=== PATIENT | male | born 1965 | race Hispanic/Latino ===

== ENCOUNTER 2019-01-31 08:01 | Emergency (ER) | payer SELFPAY ==
--- NOTE | 2019-01-31 09:13 | ER ---
Nurse's Notes [facility] Name: Yemi Vega Age: 53 yrs Sex: Male : 1965 Arrival Date: 01/31/2019 Time: 08:02 Bed 18 Private MD: Diagnosis: Pain in right shoulder Presentation: 01/31 08:04 Presenting complaint: Patient states: right shoulder pain that he noticed started after sv lifting some branches that happened months ago. Has been taking Excedrin and it helps sometimes. Transition of care: patient was not received from another setting of care. Onset of symptoms was 2018. Risk Assessment: Do you want to hurt yourself or someone else? Patient reports no desire to harm self or others. Initial Sepsis Screen: Does the patient meet any 2 criteria? No. Patient's initial sepsis screen is negative. Does the patient have a suspected source of infection? No. Patient's initial sepsis screen is negative. Care prior to arrival: Medication(s) given: Excedrin ES. 08:04 Method Of Arrival: Ambulatory sv 08:04 Acuity: JENNIFER 4 sv Triage Assessment: 08:04 General: Appears in no apparent distress. uncomfortable, well groomed, well developed, sv Behavior is calm, cooperative, appropriate for age. Pain: Complains of pain in anterior aspect of right shoulder Pain currently is 10 out of 10 on a pain scale. Pain began months ago Is intermittent. Neuro: Level of Consciousness is awake, alert, obeys commands, Oriented to person, place, time, situation, Moves all extremities. Gait is steady. Respiratory: Airway is patent Respiratory effort is even, unlabored, Respiratory pattern is regular, symmetrical. Derm: Skin is pink, warm \T\ dry. Musculoskeletal: Range of motion: intact in all extremities. Historical: - Allergies: 08:09 No Known Allergies; sv - PMHx: 08:09 Diabetes - NIDDM; Hypertension; sv - PSHx: 08:09 left knee; sv - Immunization history:: Flu vaccine is not up to date. - Social history:: Smoking status: Patient/guardian denies using tobacco. - Ebola Screening: : No symptoms or risks identified at this time. Screenin:04 Abuse screen: Denies threats or abuse. Denies injuries from another. Nutritional sv screening: No deficits noted. Tuberculosis screening: No symptoms or risk factors identified. Fall Risk None identified. Assessment: 08:44 Reassessment: Xray at the bedside. sv 09:15 Reassessment: Patient appears in no apparent distress at this time. No changes from sv previously documented assessment. Patient and/or family updated on plan of care and expected duration. Pain level reassessed. Patient is alert, oriented x 3, equal unlabored respirations, skin warm/dry/pink. 09:41 Reassessment: Patient appears in no apparent distress at this time. No changes from sv previously documented assessment. Patient and/or family updated on plan of care and expected duration. Pain level reassessed. Patient is alert, oriented x 3, equal unlabored respirations, skin warm/dry/pink. Vital Signs: 08:09 BP 155 / 94; Pulse 82; Resp 18; Temp 98; Pulse Ox 96% ; Weight 108.86 kg; Height 5 ft. sv 10 in. (177.80 cm); Pain 10/10; 09:01 BP 149 / 91; Pulse 71; Resp 18; Pulse Ox 96% ; sv 08:09 Body Mass Index 34.44 (108.86 kg, 177.80 cm) sv ED Course: 08:02 Patient arrived in ED. as 08:03 Iraida Box, MILTON is Primary Nurse. sv 08:04 Roberto Carlos Napier NP is PHCP. pm1 08:04 Cuate Christiansen MD is Attending Physician. pm1 08:04 Arm band placed on Patient placed in an exam room, on a stretcher. sv 08:04 Patient has correct armband on for positive identification. Bed in low position. Call sv light in reach. Pulse ox on. NIBP on. Door closed. Head of bed elevated. 08:09 Triage completed. sv 08:23 Awaiting for x-ray. sv 08:53 Shoulder Right (2 View) XRAY In Process Unspecified. EDMS 09:22 No provider procedures requiring assistance completed. Patient did not have IV access sv during this emergency room visit. Administered Medications: 09:19 Drug: TORadol 60 mg Route: IM; Site: right gluteus; sv 09:41 Follow up: Response: No adverse reaction; No change in condition sv Outcome: 09:12 Discharge ordered by . pm1 09:41 Patient left the ED. ss 09:41 Discharged to home ambulatory. sv 09:41 Condition: stable 09:41 Discharge instructions given to patient, Instructed on discharge instructions, follow up and referral plans. no drinking with medication, no driving heavy equipment, medication usage, Demonstrated understanding of instructions, follow-up care, medications, Prescriptions given X 3. Signatures: Dispatcher [employer] Iraida Burks RN RN sv Martinez, Amelia as Smirch, Shelby, RN RN ss Marinas, Patrick, [employer] PROFESSOR OF ANTHROPOLOGY pm1
--- NOTE | 2019-01-31 09:13 | EDPHYS ---
Physician Documentation [facility] Name: Yemi Vega Age: 53 yrs Sex: Male : 1965 Arrival Date: 01/31/2019 Time: 08:02 Bed 18 Private MD: ED Physician Cuate Christiansen HPI: 01/31 08:56 This 53 yrs old Male presents to ER via Ambulatory with complaints of Right pm1 Shoulder Pain. 08:56 The patient or guardian complains of pain. right shoulder. Context: resulted from pm1 lifting or carrying, a heavy object. Onset: The symptoms/episode began/occurred Multiple months ago. Pain is worse today. Modifying factors: the symptoms are alleviated by remaining still, The symptoms are aggravated by movement of right arm. Associated signs and symptoms: Pertinent negatives: chest pain, neck pain, Numbness in right arm tingling, Weakness in right arm. Severity of symptoms: in the emergency department the symptoms are actually worse. Treatment prior to arrival includes: over the counter medications, NSAIDS. The patient has not experienced similar symptoms in the past. The patient has not recently seen a physician. Historical: - Allergies: 08:09 No Known Allergies; sv - PMHx: 08:09 Diabetes - NIDDM; Hypertension; sv - PSHx: 08:09 left knee; sv - Immunization history:: Flu vaccine is not up to date. - Social history:: Smoking status: Patient/guardian denies using tobacco. - Ebola Screening: : No symptoms or risks identified at this time. ROS: 08:56 Constitutional: Negative for fever, chills, and weight loss, Eyes: Negative for injury, pm1 pain, redness, and discharge, ENT: Negative for injury, pain, and discharge, Neck: Negative for injury, pain, and swelling, Cardiovascular: Negative for chest pain, palpitations, and edema, Respiratory: Negative for shortness of breath, cough, wheezing, and pleuritic chest pain, Abdomen/GI: Negative for abdominal pain, nausea, vomiting, diarrhea, and constipation, Back: Negative for injury and pain. 08:56 Skin: Negative for injury, rash, and discoloration, Neuro: Negative for headache, weakness, numbness, tingling, and seizure. 08:56 MS/extremity: Positive for pain, of the right shoulder, Negative for decreased range of motion, deformity. Exam: 08:56 Constitutional: This is a well developed, well nourished patient who is awake, alert, pm1 and in no acute distress. Head/Face: Normocephalic, atraumatic. Neck: Trachea midline, no thyromegaly or masses palpated, and no cervical lymphadenopathy. Supple, full range of motion without nuchal rigidity, or vertebral point tenderness. No Meningismus. Chest/axilla: Normal chest wall appearance and motion. Nontender with no deformity. No lesions are appreciated. Cardiovascular: Regular rate and rhythm with a normal S1 and S2. No gallops, murmurs, or rubs. Normal PMI, no JVD. No pulse deficits. Respiratory: Lungs have equal breath sounds bilaterally, clear to auscultation and percussion. No rales, rhonchi or wheezes noted. No increased work of breathing, no retractions or nasal flaring. 08:56 Back: No spinal tenderness. No costovertebral tenderness. Full range of motion. Skin: Warm, dry with normal turgor. Normal color with no rashes, no lesions, and no evidence of cellulitis. 08:56 Musculoskeletal/extremity: Extremities: grossly normal except: noted in the right shoulder: pain, There is no evidence of decreased ROM, deformity. 08:56 Neuro: Orientation: is normal, Motor: is normal, moves all fours, Gait: is steady, at a normal pace, without difficulty. Vital Signs: 08:09 BP 155 / 94; Pulse 82; Resp 18; Temp 98; Pulse Ox 96% ; Weight 108.86 kg; Height 5 ft. sv 10 in. (177.80 cm); Pain 10/10; 09:01 BP 149 / 91; Pulse 71; Resp 18; Pulse Ox 96% ; sv 08:09 Body Mass Index 34.44 (108.86 kg, 177.80 cm) sv MDM: 08:15 Patient medically screened. pm1 08:15 Data reviewed: vital signs. Data interpreted: Pulse oximetry: on room air is 96 %. pm1 Interpretation: normal. 09:11 ED course: patient refused sling. pm1 09:11 Counseling: I had a detailed discussion with the patient and/or guardian regarding: the pm1 historical points, exam findings, and any diagnostic results supporting the discharge/admit diagnosis, radiology results, the need for outpatient follow up, for definitive care, a orthopedic surgeon, to return to the emergency department if symptoms worsen or persist or if there are any questions or concerns that arise at home. 01/31 08:19 Order name: Shoulder Right (2 View) XRAY pm1 Administered Medications: :19 Drug: TORadol 60 mg Route: IM; Site: right gluteus; sv 09:41 Follow up: Response: No adverse reaction; No change in condition sv Disposition: 14:10 Co-signature as Attending Physician, Cuate Christiansen MD. rn Disposition: 01/31/19 09:12 Discharged to Home. Impression: Pain in right shoulder. - Condition is Stable. - Discharge Instructions: Shoulder Pain. - Prescriptions for Tylenol- Codeine #3 300-30 mg Oral Tablet - take 2 tablets by ORAL route every 6 hours As needed; 20 tablet. Cyclobenzaprine 10 mg Oral Tablet - take 1 tablet by ORAL route every 8 hours As needed; 30 tablet. Diclofenac Sodium 75 mg Oral Tablet, Delayed Release (E.C.) - take 1 tablet by ORAL route 2 times per day As needed; 30 tablet. - Work release form, Medication Reconciliation Form, Thank You Letter, Antibiotic Education, Prescription Opioid Use form. - Follow up: Emergency Department; When: As needed; Reason: Worsening of condition. Follow up: Private Physician; When: 2 - 3 days; Reason: Recheck today's complaints, Continuance of care, Re-evaluation by your physician. - Problem is new. - Symptoms have improved. Signatures: Dispatcher [employer] Iraida Burks RN RN sv Nieto, Roman, MD MD rn Smirch, Shelby, RN RN ss Marinas, Patrick, [employer] pm1 Corrections: (The following items were deleted from the chart) 09:41 09:12 01/31/2019 09:12 Discharged to Home. Impression: Pain in right shoulder. ss Condition is Stable. Forms are Medication Reconciliation Form, Thank You Letter, Antibiotic Education, Prescription Opioid Use. Follow up: Emergency Department; When: As needed; Reason: Worsening of condition. Follow up: Private Physician; When: 2 - 3 days; Reason: Recheck today's complaints, Continuance of care, Re-evaluation by your physician. Problem is new. Symptoms have improved. pm1
[2019-01-31] MEDS ORDERED: KETOROLAC 30 MG/ML INJ ONE (09:17)
[2019-01-31 09:56] VITALS: TEMP 98; O2SAT 96
[2019-01-31 09:58] VITALS: BP 149/91
--- NOTE | 2019-01-31 10:09 | RAD REPORT ---
EXAM DESCRIPTION: RAD - Shoulder Right 2 View - 01/31/2019 8:51 am CLINICAL HISTORY: Right shoulder pain FINDINGS: No fracture or dislocation is seen. Moderate narrowing involves the AC joint with small osteophytes
== END 2019-01-31 09:41 | disposition home or self-care (01) ==
LOC: ER 08:01
DX: M25.511 Pain in right shoulder (principal)
CPT/HCPCS: 96372; 99284

== ENCOUNTER 2023-01-24 09:19 | Emergency (ER) | payer SELFPAY ==
--- OUTSIDE RECORDS SUMMARY | 2023-01-24 09:24 | XMS REPORT | Continuity of Care Document ---
:1965 Author Organization [facility] t Address [address] [facility] [address] [place] [address] Care Team Providers Name Role Phone JENNIFER RUELAS Primary Care Physician Unavailable MOLLY WU Attending Clinician Unavailable Karishma Wills Attending Clinician Casi Capone DO Attending Clinician Fuentes Brock Attending Clinician Payers Payer Name Policy Type Policy Number Effective Date Expiration Date S [facility] [id number] 2018 00:00:00 Problems Condition Condition Condition Status Onset Resolution Last Treating Co mments Source Name Details Category Date Date Treatment Clinician Date No known No known Disease Unive rs active active ity of problems problems [facility] Diabetes Diabetes Problem Resolve 2020-06-14 Memoria mellitus mellitus d 00:44:58 l (disorder) (disorder) He rmann Resolved Problem 06/14/2020 Medical Group Hypertensi Hypertens Problem Resolve 2020-06-14 Memoria ve leila d 00:44:58 l disorder, disorder, Herm aly systemic systemic arterial arterial (disorder) (disorder) Resolved Problem 06/14/2020 Medical Group Allergies, Adverse Reactions, Alerts Allergy Allergy Status Severity Reaction(s) Onset Inactive Treating Comm ents Source Name Type Date Date Clinician No Known No Known Active Memori a Medicati Medicati l on on Glenn Allergie Allergie s s NO KNOWN Drug Active Univers ALLERGIE Class ity of S [facility] Social History Social Habit Start Date Stop Date Quantity Comments Source Sex Assigned At [facility] Medical Branch Exposure to Not sure [facility] SARS-CoV-2 (event) Medica l Branch Alcohol intake 2018-05-19 2018-05-19 [facility] 00:00:00 00:00:00 Medical Branch Smoking Status Start Date Stop Date Source Social History [facility] Medications Ordered Filled Start Stop Current Ordering Indication Dosage Frequency Signature Comments Components Source Medication Medication Date Date Medication? Clinician (SIG) Name Name glimepiride Yes 0 Memori a 2 mg oral 4-19 Refill(s) l tablet 19:16: [place] 00 Hydrochloro Yes 0 Memori a thiazide 25 4-19 Refill(s) l MG / 19:15: [place] valsartan 00 320 MG Oral Tablet pravastatin Yes 0 Memori a 40 mg oral 4-19 Refill(s) l tablet 19:15: [place] 00 Metformin Yes 0 Memoria hydrochlori 4-19 Refill(s) l de 500 MG 19:15: [place] Oral Tablet 00 meloxicam Yes 0 Memoria 7.5 mg oral 4-19 Refill(s) l tablet 19:15: [place] 00 NaCl 0.9% 2020- No 1000mL at 999 Uni vers (NS) bolus 6-30 06-30 mL/hr, ity of infusion 19:45: 21:28 1,000 mL, Valente as 1,000 mL 00 :00 IV Medical Piggyback, [place] ONCE, 1 dose, 08/23/19 at 1445, STAT DICLOFENAC Yes [id number] TAKE 1 Univers 75 mg EC 9-04 TABLET BY ity of tablet 00:00: MOUTH [place] TWICE Medical DAILY WITH Branch MEALS DICLOFENAC Yes [id number] TAKE 1 Univers 75 mg EC 9-04 TABLET BY ity of tablet 00:00: MOUTH [place] 00 TWICE Medical DAILY WITH Branch MEALS diclofenac 2018- Yes 75mg Take 1 Unive rs 75 mg EC 4-11 tablet by ity of tablet 00:00: mouth 2 [place] (two) Medical times Branch daily with meals. diclofenac 2019- Yes 75mg Take 1 Unive rs 75 mg EC 4-11 tablet by ity of tablet 00:00: mouth 2 [place] (two) Medical times Branch daily with meals. methylPREDN 2018-0 Yes [id number] Take by Univers ISolone 1-26 mouth ity of (MEDROL, 00:00: SEE-INSTRU [place]ente as ANAM,) 4 mg 00 CTIONS. Medica l tablets follow Branch package directions methylPREDN 2019-0 Yes [id number] Take by Univers ISolone 1-26 mouth ity of (MEDROL, 00:00: SEE-INSTRU [place] as ANAM,) 4 mg 00 CTIONS. Medica l tablets follow Branch package directions methylPREDN 2017- Yes 84mg Take 21 Uni vers ISolone 7-06 tablets by ity of (MEDROL, 00:00: mouth [place] ANAM,) 4 mg 00 SEE-INSTRU Med ical tablets CTIONS. Branch follow package directions methylPREDN 0 Yes 84mg Take 21 Uni vers ISolone 7-06 tablets by ity of (MEDROL, 00:00: mouth [place] ANAM,) 4 mg 00 SEE-INSTRU Med ical tablets CTIONS. Branch follow package directions glimepiride 0 Yes TK 1 T PO U nivers 2 mg tablet 6-06 QPM ity of 00:00: [place] 00 Medical Branch losartan-hy 2018-0 Yes TK 1 T PO U nivers drochloroth 6-06 QAM ity of iazide 00:00: [place] 100-25 mg 00 Medical per tablet Branch metFORMIN 2018-0 Yes TK 1 T PO Uni vers 500 mg 6-06 BID ity of tablet 00:00: [place] 00 Medical Branch glimepiride 2018-0 Yes TK 1 T PO U nivers 2 mg tablet 6-06 QPM ity of 00:00: [place] 00 Medical Branch losartan-hy 2018-0 Yes TK 1 T PO U nivers drochloroth 6-06 QAM ity of iazide 00:00: [place] 100-25 mg 00 Medical per tablet Branch metFORMIN 2018-0 Yes TK 1 T PO Uni vers 500 mg 6-06 BID ity of tablet 00:00: [place] 00 Medical Branch traMADOL 2017-0 Yes 50mg Take 1 Univers (ULTRAM) 50 7-02 tablet by ity of mg tablet 00:00: mouth [place] 00 every 6 Medical (six) Branch hours as needed for Pain (scale 4-6). traMADOL 2017-0 Yes 50mg Take 1 Univers (ULTRAM) 50 7-02 tablet by ity of mg tablet 00:00: mouth [place] 00 every 6 Medical (six) Branch hours as needed for Pain (scale 4-6). Vital Signs Vital Name Observation Time Observation Value Comments Source Systolic blood 2019-08-23 20:30:00 130 mm[Hg] Univer sity of pressure [facility] Diastolic blood 2019-08-23 20:30:00 90 mm[Hg] Unive rsity of [facility] Heart rate 2019-08-23 20:30:00 75 /min [facility] Respiratory rate 2019-08-23 20:30:00 16 /min [facility] Oxygen saturation in 2019-08-23 20:30:00 97 /min [facility] Arterial blood by [facility] Pulse oximetry [place] Body temperature 2019-08-23 18:09:00 37.17 Raven [facility] Body height 2019-08-23 18:09:00 177.8 cm [facility] Body weight 2019-08-23 18:09:00 108.863 kg [facility] BMI 2019-08-23 18:09:00 34.44 kg/m2 [facility] Systolic (mm Hg) 2020-06-11 19:07:00 Beny Elizabeth Diastolic (mm Hg) 2020-06-11 19:07:00 [facility] mary Elizabeth Heart Rate 2020-06-11 19:07:00 [facility] Height 2020-06-11 19:07:00 177.8 cm [facility] Weight 2020-06-11 19:07:00 [facility] BMI Calculated 2020-06-11 19:07:00 Joanna Modi Procedures Procedure Date / Time Performing Clinician Source Performed BASIC METABOLIC PANEL 2019-08-23 19:40:00 Casi Capone [facility] (NA, K, CL, CO2, Medical Branch GLUCOSE, BUN, CREATININE, CA) URINALYSIS 2019-08-23 19:40:00 Casi Capone [facility] CBC WITH DIFFERENTIAL 2019-08-23 18:37:00 Casi Capone [facility] Encounters Start End Encounter Admission Attending Care Care Encounter Source Date/Time Date/Time Type Type Clinicians Facility Department ID 2020-12-21 Emergency [facility] [id number] Univers 03:44:21 ity [facility] 2020-06-29 2020-06-29 Outpatient [facility] [id number] Univers 09:10:00 08:18:19 MOLLY [facility] 2020-06-11 2020-06-12 Outpatient nullFlavo [facility] [id number] Memoria 19:00:00 04:59:59 r Specialty 00 l Clinic Loyd Burrows 2020-06-11 2020-06-11 Outpatient Johann [facility] [id number] 14:00:00 23:59:59 Karishma L 00 2020-06-11 2020-06-[address] [facility] [id number] Memoria 14:00:00 14:00:00 00 l Glenn 2020-06-06 2020-06-06 [facility] [id number] Univers 09:10:00 09:00:07 [facility] [place] [facility] 2019-08-23 2019-08-23 Emergency [facility] [id number] Univers 13:14:42 16:29:00 Casi Agudelo [id number] ity of [place] [id number] [facility] [id number] [place] [id number] [place] 2018-10-26 2018-10-26 [facility] [id number] Univers 00:00:00 00:00:00 [facility] [id number] it y of Surgical [id number] Valente as Specialti [phone] Fl dical [address] [facility] Results Test Description Test Time Test Comments Results Result Comments Source BASIC METABOLIC PANEL (NA, K, CL, CO2, GLUCOSE, BUN, 2019-07 20:02:00 CREATININE, CA) Test Item Value Reference Range Interpretation Comme nts NA (test code = 9976295242) 134 mmol/L 135-145 L K (test code = 0721515894) 3.5 mmol/L 3.5-5 CL (test code = 5273704525) 92 mmol/L 98-108 L CO2 TOTAL (test code = 4466224190) 35 mmol/L 23-31 H AGAP (test code = 4863569090) 2-16 BUN (test code = 4813457912) 17 mg/dL 7-23 GLUCOSE (test code = 8389668221) 186 mg/dL 70-110 H CREATININE (test code = 0.76 mg/dL 0.6-1.25 4979520899) CALCIUM (test code = 7701383666) 9.5 mg/dL 8.6-10.6 eGFR Calculation (Non- mL/min/1.73m2 [place]) (test code = 0615417376) eGFR Calculation ( mL/min/1.73m2 [place]) (test code = 8918711752) DWAIN (test code = DWAIN) Association of Glomerular Filtration Rate (GFR) and Staging of Kidney Disease* + +-------- + ------+| GFR (mL/min/1.73 m2) ?| With Kidney Damage ?| ?Without Kidney Damage+ +-- + +| ?>90 ?| ?Stage one ?| ? Normal ?+ +------- + -------+| ?60-89 ?| ?Stage two ?| ? Decreased GFR ? + +-------- + ------+| ?30-59 ?| ?Stage three ?| ? Stage three ? + +-------- + ------+| ?15-29 ?| ?Stage four ? | ? Stage four ?+ +------- + -------+| ?<15 (or dialysis) ? ?| ?Stage five ? | ? Stage five ?+ +------- + -------+ *Each stage assumes the associated GFR level has been in effect for at least three months. ?Stages 1 to 5, with or without kidney disease, indicate chronic kidney disease. Notes: Determination of stages one and two (with eGFR >59mL/min/1.73 m2) requires estimation of kidney damage for at least three months as defined by structural or functional abnormalities of the kidney, manifested by either:Pathological abnormalities or Markers of kidney damage (including abnormalities in the composition of the blood or urine or abnormalities in imaging tests). Lab Interpretation (test code = Abnormal 80320-4) [facility] [id number] 20:00:00 Test Item Value Reference Range Interpretation Comments APPEARANCE (test code = Hazy Clear A 9425280025) COLOR (test code = Marisabel Yellow A 0031990455) PH (test code = 4.8-8.0 2317890981) SP GRAVITY (test code = 1.003-1.030 9895238259) GLU U QUAL (test code = 150 mg/dL Normal A 0424659967) BLOOD (test code = Negative Negative 8509028703) KETONES (test code = Negative Negative 1752899359) PROTEIN (test code = 100 mg/dL Negative A 2887-8) UROBILIN (test code = 2.0 mg/dL Normal A 3995932262) BILIRUBIN (test code = Negative Negative 5674805079) NITRITE (test code = Negative Negative 2710341543) LEUK DAYANA (test code = 250/uL Negative A 3327822627) RBC/HPF (test code = See_Comment H [Autom ated message] 2660790329) The system [employer] generated this result transmit maggie reference range : 0 - 3 HPF. The refe rence range was not u sed to interpret th is result as normal/abnormal . WBC/HPF (test code = See_Comment H [Autom ated message] 1081292089) The system [employer] generated this result transmit maggie reference range : 0 - 5 HPF. The refe rence range was not u sed to interpret th is result as normal/abnormal . BACTERIA (test code = Few Negative A 9783909795) MUCOUS (test code = Slight Negative LPF A 5003653990) SQ EPITH (test code = HPF 2142482750) HYAL CAST (test code = See_Comment [Aut omated message] 7015569467) The system [employer] generated this result transmit maggie reference range : <=2 LPF. The refere nce range was not u sed to interpret th is result as normal/abnormal . Lab Interpretation (test Abnormal code = 72731-4) [facility] WITH [id number] 19:01:00 Test Item Value Reference Range Interpretation Comments WBC (test code = See_Comment [Automated message] 6690-2) The system [employer] generated this result transmitted ref erence range: 4.20 - 1 0.70 10*3/?L. The re ference range was not u sed to interpret this result as normal/abnor mal. RBC (test code = See_Comment [Automated message] 789-8) The system [employer] generated this result transmitted ref erence range: 4.26 - 5 .52 10*6/?L. The re ference range was not u sed to interpret this result as normal/abnor mal. HGB (test code = 15.1 g/dL 12.2-16.4 718-7) HCT (test code = 44.5 % 38.4-49.3 4544-3) MCV (test code = 89.9 fL 81.7-95.6 787-2) MCH (test code = 30.5 pg 26.1-32.7 785-6) MCHC (test code = 33.9 g/dL 31.2-35 786-4) RDW-SD (test code 41.1 fL 38.5-51.6 = 47356-4) RDW-CV (test code 12.6 % 12.1-15.4 = 788-0) PLT (test code = See_Comment [Automated message] 777-3) The system [employer] generated this result transmitted ref erence range: 150 - 32 8 10*3/?L. The re ference range was not u sed to interpret this result as normal/abnor mal. MPV (test code = 10.0 fL 9.8-13 72891-0) NRBC/100 WBC (test See_Comment [Automat ed message] code = 2789610142) The syste m which generated this result transmitted ref erence range: 0.0 - 10 .0 /100 WBCs. The refer ence range was not u sed to interpret this result as normal/abnor mal. NRBC x10^3 (test <0.01 See_Comment [Automated message] code = 7375552704) The syste m which generated this result transmitted ref erence range: 10*3/?L. The reference range was not used to interpr et this result as normal/abnormal . GRAN MAT (NEUT) % 49.1 % (test code = 770-8) IMM GRAN % (test 0.30 % code = 8859057351) LYMPH % (test code 36.6 % = 736-9) MONO % (test code 8.5 % = 5905-5) EOS % (test code = 4.8 % 713-8) BASO % (test code 0.7 % = 706-2) GRAN MAT 3.78 10*3/uL 1.99-6.95 x10^3(ANC) (test code = 7250117331) IMM GRAN x10^3 <0.03 0-0.06 (test code = 7532047959) LYMPH x10^3 (test 2.81 10*3/uL 1.09-3.23 code = 731-0) MONO x10^3 (test 0.65 10*3/uL 0.36-1.02 code = 742-7) EOS x10^3 (test 0.37 10*3/uL 0.06-0.53 code = 711-2) BASO x10^3 (test 0.05 10*3/uL 0.01-0.09 code = 704-7) [facility]"
[2023-01-24 10:03] LABS: Absolute Lymphocytes (CBC) 2.2 K/uL (0.7-4.9); Hematocrit 43.2 % (39.6-49.0); Lymphocytes % 31.1 % (15.3-44.8); MCV 89.9 fL (80-100); MPV 7.9 fL (7.6-11.3); Platelets 242 thou/uL (152-406); RBC Red Blood Cell Count 4.81 M/uL (4.33-5.43)
[2023-01-24 10:19] LABS: Potassium 3.8 mEq/L (3.5-5.1)
--- NOTE | 2023-01-24 10:21 | RAD REPORT ---
EXAM DESCRIPTION: RAD - Hand Left 3 View - 01/24/2023 9:58 am CLINICAL HISTORY: SWELLING COMPARISON: <Comparisons> FINDINGS: Soft tissue swelling is seen along the dorsum of the hand. No acute fracture or dislocatio n is seen.
[2023-01-24] MEDS ORDERED: INSULIN REGULAR (HUMAN) 100 UNIT/ML ONE (10:56)
--- NOTE | 2023-01-24 11:08 | RAD REPORT ---
EXAM DESCRIPTION: US - Extremity Nonvascular Complete - 01/24/2023 10:56 am CLINICAL HISTORY: r/o FB Pain and swelling COMPARISON: Hand Left 3 View dated 01/24/2023 TECHNIQUE: Real-time sonographic evaluation of the area of interest was performed. FINDINGS: No definitive echogenic foreign body visualized. Ultrasound is inherently limited in forei gn body evaluation.
--- NOTE | 2023-01-24 11:21 | EDPHYS ---
Physician Documentation [facility] Name: Yemi Vega Age: 57 yrs Sex: Male : 1965 Arrival Date: 01/24/2023 Time: 09:19 Bed 8 Private MD: ED Physician Sonu Carranza HPI: 01/24 09:31 This 57 yrs old Male presents to ER via Ambulatory with complaints of Hand jh7 Swelling. 09:31 The patient or guardian reports pain, swelling. The complaints affect the left hand jh7 diffusely. Context: The problem was sustained at home, resulted from a crush injury, box of wood. Onset: The symptoms/episode began/occurred 3 week(s) ago. Modifying factors: the symptoms are aggravated by movement. Associated signs and symptoms: Pertinent negatives: cyanosis distally, decreased sensation distally, fever, nausea, numbness distally, tingling distally, vomiting. Historical: - Allergies: 09:32 No Known Allergies; hb - PMHx: 09:32 Diabetes - NIDDM; Hypertension; hb - Immunization history:: Adult Immunizations up to date. - Social history:: Smoking status: Patient denies any tobacco usage or history of. ROS: 09:31 Constitutional: Negative for fever, chills, and weight loss, Eyes: Negative for injury, jh7 pain, redness, and discharge, Neck: Negative for injury, pain, and swelling, Cardiovascular: Negative for chest pain, palpitations, and edema, Respiratory: Negative for shortness of breath, cough, wheezing, and pleuritic chest pain, Abdomen/GI: Negative for abdominal pain, nausea, vomiting, diarrhea, and constipation, Back: Negative for injury and pain, Skin: Negative for injury, rash, and discoloration, Neuro: Negative for headache, weakness, numbness, tingling, and seizure, 09:31 MS/extremity: Positive for pain, swelling, of the left hand, 09:31 All other systems are negative, Exam: 09:31 Constitutional: This is a well developed, well nourished patient who is awake, alert, jh7 and in no acute distress. Head/Face: Normocephalic, atraumatic. Cardiovascular: Regular rate and rhythm with a normal S1 and S2. No gallops, murmurs, or rubs. Normal PMI, no JVD. No pulse deficits. Respiratory: Lungs have equal breath sounds bilaterally, clear to auscultation and percussion. No rales, rhonchi or wheezes noted. No increased work of breathing, no retractions or nasal flaring. Skin: Warm, dry with normal turgor. Normal color with no rashes, no lesions, and no evidence of cellulitis. Neuro: Awake and alert, GCS 15, oriented to person, place, time, and situation. Motor strength 5/5 in all extremities. Sensory grossly intact. Normal gait. 09:31 Musculoskeletal/extremity: Extremities: erythema, swelling, Mild erythema noted over the distal third metacarpal of the left hand with mild tenderness. There is diffuse swelling over the dorsum of the left hand extending to the digits., Vital Signs: 09:33 BP 149 / 101; Pulse 68; Resp 16; Temp 97.1(TE); Pulse Ox 97% on R/A; Weight 104.33 kg; hb Height 5 ft. 10 in. ; Pain 2/10; 09:33 Body Mass Index 33.00 (104.33 kg, 177.8 cm) hb 09:33 Pain Scale: Adult hb MDM: 09:23 Patient medically screened. jh7 11:15 Differential diagnosis: closed fracture, contusion, tendonitis, Cellulitis, retained jh7 foreign body. Data reviewed: vital signs, nurses notes, lab test result(s), radiologic studies, plain films, ultrasound. I considered the following discharge prescriptions or medication management in the emergency department Medications were administered in the Emergency Department. See MAR. Care significantly affected by the following chronic conditions: Diabetes, Hypertension. Counseling: I had a detailed discussion with the patient and/or guardian regarding the historical points, exam findings, and any diagnostic results supporting the discharge/admit diagnosis, to return to the emergency department if symptoms worsen or persist or if there are any questions or concerns that arise at home. Response to treatment: the patient's symptoms have mildly improved after treatment. Special discussion: Informed the patient that there were no foreign body seen on either the x-ray or the ultrasound. The patient stated that he also did not think there was a foreign body present but was just concerned about the swelling. Informed him that due to the mild erythema and the extent of the swelling of the hand, we will treat for cellulitis by giving 1 dose of IV antibiotic here in the ER and discharging with prescription antibiotics. If the patient develops any increase in redness, fever, or any new concerning symptoms, he may return to the ER for further eval. The patient understood the plan of care.. 01/24 09:34 Order name: BMP; Complete Time: 10:25 7 01/24 09:34 Order name: CBC with Diff; Complete Time: 10:25 7 01/24 09:34 Order name: Lactate w/ 2H reflex if indic.; Complete Time: 10:25 7 01/24 09:34 Order name: XRAY Hand LEFT 3 View; Complete Time: 10:25 7 01/24 10:44 Order name: Extremity Nonvascular Complete; Complete Time: 11:09 [facility] 01/24 09:34 Order name: IV Start; Complete Time: 09:53 [facility] Administered Medications: 10:46 Drug: Insulin Regular Human IVP 10 units IVP once {Co-Signature: aa5 (Kezia Yadav RN).} Route: IVP; Site: right antecubital; 11:30 Follow up: Response: No adverse reaction iw 11:26 Drug: Clindamycin IVPB 600 mg IVPB once over 30 mins; (mix in 50 mL) Route: IVPB; iw Infused Over: 30 mins; Site: right antecubital; 12:00 Follow up: IV Status: Completed infusion iw Disposition Summary: 01/24/23 11:21 Discharge Ordered Notes: Location: Home [facility] Problem: new [facility] Symptoms: are unchanged [facility] Condition: Stable [facility] Diagnosis - Cellulitis of left hand [facility] Followup: [facility] - With: Private Physician - When: 2 - 3 days - Reason: Recheck today's complaints Discharge Instructions: - Discharge Summary Sheet [facility] - Cellulitis, Adult [facility] Forms: - Medication Reconciliation Form [facility] - Thank You Letter [facility] - Antibiotic Education [facility] - Patient Portal Instructions [facility] - Leadership Thank You Letter [facility] Prescriptions: - Naprosyn 500 mg Oral Tablet - take 1 tablet ORAL route 2 times per day take with food; 30 tablet; Refills: 0, [facility] Product Selection Permitted - Doxycycline Hyclate 100 mg Oral tablet - take 1 tablet ORAL route every 12 hours for 7 days; 14 tablet; Refills: 0, [facility] Product Selection Permitted Signatures: [facility] Krysta Morales RN RN iw Anisha Flores, RN RN Radha Briceño, DREDGE MASTER DREDGE MASTER jh7 Kezia Yadav RN aa5 Corrections: (The following items were deleted from the chart) 10:44 10:30 Extrmty Nonvasular Limited+[id number].RAD.BRZ ordered. EDMS EDMS
--- NOTE | 2023-01-24 11:21 | ER ---
Nurse's Notes [facility] Name: Yemi Vega Age: 57 yrs Sex: Male : 1965 Arrival Date: 01/24/2023 Time: 09:19 Bed 8 Private MD: Diagnosis: Cellulitis of left hand Presentation: 01/24 09:31 Chief complaint: Hit hand on wood box 3 weeks ago, c/o left hand pain and swelling. hb Coronavirus screen: At this time, the client does not indicate any symptoms associated with coronavirus-19. Ebola Screen: No symptoms or risks identified at this time. Risk Assessment: Do you want to hurt yourself or someone else? Patient reports no desire to harm self or others. Onset of symptoms was January 01, 2023. 09:31 Method Of Arrival: Ambulatory hb 09:33 Initial Sepsis Screen: Does the patient meet any 2 criteria? No. Patient's initial hb sepsis screen is negative. Does the patient have a suspected source of infection? No. Patient's initial sepsis screen is negative. 09:33 Acuity: JENNIFER 3 hb Historical: - Allergies: 09:32 No Known Allergies; hb - PMHx: 09:32 Diabetes - NIDDM; Hypertension; hb - Immunization history:: Adult Immunizations up to date. - Social history:: Smoking status: Patient denies any tobacco usage or history of. Screenin:57 [facility] ED Fall Risk Assessment (Adult) Score/Fall Risk Level. Abuse screen: Denies iw threats or abuse. Denies injuries from another. Nutritional screening: No deficits noted. Nutritional screening: No deficits noted. Tuberculosis screening: No symptoms or risk factors identified. Assessment: 09:55 General: Appears in no apparent distress. Behavior is calm. Pain: Complains of pain in iw left hand. Neuro: Level of Consciousness is awake, alert, obeys commands, Oriented to person, place, time, situation, Moves all extremities. Cardiovascular: Patient's skin is warm and dry. Respiratory: Respiratory effort is even, unlabored, Respiratory pattern is regular. GI: Abdomen is non-distended. Derm: Skin is healthy with good turgor. Musculoskeletal: Swelling present in left hand. Vital Signs: 09:33 BP 149 / 101; Pulse 68; Resp 16; Temp 97.1(TE); Pulse Ox 97% on R/A; Weight 104.33 kg; hb Height 5 ft. 10 in. ; Pain 04/04; 09:33 Body Mass Index 33.00 (104.33 kg, 177.8 cm) hb 09:33 Pain Scale: Adult hb ED Course: 09:21 Patient arrived in ED. mr 09:23 [facility] 09:23 Sonu Carranza MD is Attending Physician. [facility] 09:33 Triage completed. hb 09:33 Arm band placed on. hb 09:41 Krysta Capone, RN is Primary Nurse. iw 09:53 Initial lab(s) drawn, by me, sent to lab. Inserted saline lock: 20 gauge in right iw antecubital area, using aseptic technique. Blood collected. 09:55 Patient has correct armband on for positive identification. Provided Education on: . iw 09:59 XRAY Hand LEFT 3 View In Process Unspecified. EDMS 10:57 Extremity Nonvascular Complete In Process Unspecified. EDMS 12:00 No provider procedures requiring assistance completed. IV discontinued, intact, iw bleeding controlled, No redness/swelling at site. Pressure dressing applied. Administered Medications: 10:46 Drug: Insulin Regular Human IVP 10 units IVP once {Co-Signature: aa5 (Kezia Yadav iw RN).} Route: IVP; Site: right antecubital; 11:30 Follow up: Response: No adverse reaction iw 11:26 Drug: Clindamycin IVPB 600 mg IVPB once over 30 mins; (mix in 50 mL) Route: IVPB; iw Infused Over: 30 mins; Site: right antecubital; 12:00 Follow up: IV Status: Completed infusion iw Medication: 09:58 VIS not applicable for this client. iw Outcome: 11:21 Discharge ordered by . shannon 12:00 Discharged to home ambulatory, iw 12:00 Condition: good 12:00 Discharge instructions given to patient, Instructed on discharge instructions, follow up and referral plans. medication usage, Demonstrated understanding of instructions, follow-up care, medications, Prescriptions given X 2, 12:01 Patient left the ED. iw Signatures: Dispatcher [employer] EDIL Melany Leroy, Reg Reg mr Krysta Capone, MILTON RN Anisha Flores RN RN Radha Briceño FNP [employer] jh7 Yadav, Kezia RN aa5
[2023-01-24] MEDS ORDERED: CLINDAMYCIN 600MG/D5W 50 ML IV ONE (11:33)
[2023-01-24 12:31] VITALS: BP 149/101; TEMP 97.1; O2SAT 97
== END 2023-01-24 12:01 | disposition home or self-care (01) ==
LOC: ER 09:19
DX: L03.114 Cellulitis of left upper limb (principal)
CPT/HCPCS: 36415; 76881; 80048; 83605; 85025; 96365; 96375; 99284; J1815

== ENCOUNTER 2024-07-17 09:46 | Emergency (ER) | payer SELFPAY ==
--- OUTSIDE RECORDS SUMMARY | 2024-07-17 09:49 | XMS REPORT | Continuity of Care Document ---
Author Name Unknown Address [address] [facility] [place] [address] Organization [facility] Address [address] [facility] [address] [place] [address] Care Team Providers Care Stitcher Special Machine Name Role Phone JENNIFER RUELAS Primary Care Physician MOLLY Mane Attending Clinician Unavailable Casi Capone DO Attending Clinician Fuentes Brock Attending Clinician Payers Payer Name Policy Type Policy Number Effective Date Expirati on Date Source [facility] [id number] 2018 00:00:00 Problems Condition Name Condition Details Condition Category Status Onset Date Resolution Date Last Treatment Date Treating Clinician Comments Source No known active problems No known active problems Disease [facility] Diabetes mellitus (disorder) Diabetes mellitus (disorder) Resolved Problem 06/14/2020 [facility] Group Problem Resolve d 2020-06-14 00:44:58 Yuli Elizabeth Hypertensi ve disorder, systemic arterial (disorder) Hypertensi ve disorder, systemic arterial (disorder) Resolved Problem 06/14/2020 Medical Group Problem Resolve d 2020-06-14 00:44:58 Yuli Elizabeth Allergies, Adverse Reactions, Alerts Allergy Name Allergy Type Status Severity Reaction(s) Onset Date Inactive Date Treating Clinician Comments Source NO KNOWN ALLERGIE S Drug Class Active [facility] No Known Medicati on Allergie s No Known Medicati on Allergie s Active Yuli Elizabeth Social History Social Habit Start Date Stop Date Quantity Comments Source Sex Assigned At [facility] Exposure to SARS-CoV-2 (event) Not sure [facility] Alcohol intake 2018-05-19 00:00:00 2018-05-19 00:00:00 [facility] Smoking Status Start Date Stop Date Source Social History Lorne lu Medications Ordered Medication Name Filled Medication Name Start Date Stop Date Current Medication? Ordering Clinician Indication Dosage Frequency Signature (SIG) Comments Components Source glimepiride 2 mg oral tablet 06-11 19:16: 00 Yes 0 Refill(s) Yuli Elizabeth pravastatin 40 mg oral tablet 06-11 19:15: 00 Yes 0 Refill(s) Yuli Elizabeth Metformin hydrochlori de 500 MG Oral Tablet 06-11 19:15: 00 Yes 0 Refill(s) Yuli Elizabeth meloxicam 7.5 mg oral tablet 06-11 19:15: 00 Yes 0 Refill(s) Yuli Elizabeth Hydrochloro thiazide 25 MG / valsartan 320 MG Oral Tablet 06-11 19:15: 00 Yes 0 Refill(s) Yuli Elizabeth NaCl 0.9% (NS) bolus infusion 1,000 mL 08-22 19:45: 00 08-22 21:28 :00 No 1000mL at 999 mL/hr, 1,000 mL, IV Piggyback, ONCE, 1 dose, Thu08/23/19 at 1445, STAT [facility] DICLOFENAC 75 mg EC tablet 904 00:00: 00 Yes [id number] TAKE 1 TABLET BY MOUTH TWICE DAILY WITH MEALS [facility] diclofenac 75 mg EC tablet 11 00:00: 00 Yes 75mg Take 1 tablet by mouth 2 (two) times daily with meals. [facility] methylPREDN ISolone (MEDROL, ANAM,) 4 mg tablets 03-20 00:00: 00 Yes [id number] Take by mouth SEE-INSTRU CTIONS. follow package directions [facility] methylPREDN ISolone (MEDROL, ANAM,) 4 mg tablets 08-28 00:00: 00 Yes 84mg Take 21 tablets by mouth SEE-INSTRU CTIONS. follow package directions [facility] glimepiride 2 mg tablet 07-29 00:00: 00 Yes TK 1 T PO QPM [facility] losartan-hy drochloroth iazide 100-25 mg per tablet 07-29 00:00: 00 Yes TK 1 T PO QAM [facility] metFORMIN 500 mg tablet 07-29 00:00: 00 Yes TK 1 T PO BID [facility] traMADOL (ULTRAM) 50 mg tablet 08-24 00:00: 00 Yes 50mg Take 1 tablet by mouth every 6 (six) hours as needed for Pain (scale 4-6). [facility] Vital Signs Vital Name Observation Time Observation Value Comments S geovanny Systolic blood pressure 2019-08-23 20:30:00 130 mm[Hg] [facility] Diastolic blood pressure 2019-08-23 20:30:00 90 mm[Hg] [facility] Heart rate 2019-08-23 20:30:00 75 /min [facility] Respiratory rate 2019-08-23 20:30:00 16 /min [facility] Oxygen saturation in Arterial blood by Pulse oximetry 2019-08-23 20:30:00 97 /min [facility] Body temperature 2019-08-23 18:09:00 37.17 Raven [facility] Body height 2019-08-23 18:09:00 177.8 cm [facility] Body weight 2019-08-23 18:09:00 108.863 kg [facility] BMI 2019-08-23 18:09:00 34.44 kg/m2 [facility] Diastolic (mm Hg) 2020-06-11 19:07:00 [facility] Heart Rate 2020-06-11 19:07:00 [facility] Height 2020-06-11 19:07:00 177.8 [facility] [place] Weight 2020-06-11 19:07:00 [facility] [place] BMI Calculated 2020-06-11 19:07:00 M joyce Elizabeth Systolic (mm Hg) 2020-06-11 19:07:00 [facility] Procedures Procedure Date / Time Performed Performing Clinician Source BASIC METABOLIC PANEL (NA, K, CL, CO2, GLUCOSE, BUN, CREATININE, CA) 2019-08-23 19:40:00 Casi Capone [facility] URINALYSIS 2019-08-23 19:40:00 [facility] 2019-08-23 18:37:00 Sa edis Capone [facility] Encounters Start Date/Time End Date/Time Encounter Type Admission Type Attending [facility] Facility Care Department Encounter ID Source 2020-12-21 03:44:21 Emergency [facility] [id number] [facility] 2020-06-29 09:10:00 2020-06-29 08:18:19 Outpatient MOLLY BROCK [facility] [id number] [facility] 2020-06-11 19:00:00 2020-06-12 04:59:59 Outpatient Esauo jesús [facility] [id number] Yuli Elizabeth 2020-06-06 09:10:00 2020-06-06 09:00:07 Outpatient MOLLY BROCK [facility] [id number] [facility] 2019-08-23 13:14:42 2019-08-23 16:29:00 Emergency Casi Capone [facility] [id number] [facility] 2018-10-26 00:00:00 2018-10-26 00:00:00 Fuentes Smith [facility] [id number] [facility] Results Test Description Test Time Test Comments Results Result Co mments Source [facility] 20:[facility]:00* Test Item Value Reference Range Interpretation Comme nts APPEARANCE (test code = 3362542294) Hazy Clear A COLOR (test code = 1873530288) Marisabel Yellow A PH (test code = 4024224245) 4.8-8.0 SP GRAVITY (test code = 3805560261) 1.003-1.030 GLU U QUAL (test code = 2362244550) 150 mg/dL Normal A BLOOD (test code = 2975027896) Negative Negative KETONES (test code = 4898071875) Negative Negative PROTEIN (test code = 2887-8) 100 mg/dL Negative A UROBILIN (test code = 3786634895) 2.0 mg/dL Normal A BILIRUBIN (test code = 9530217700) Negative Negative NITRITE (test code = 6077509614) Negative Negative LEUK DAYANA (test code = 5470896575) 250/uL Negative A RBC/HPF (test code = 7760772727) See_Comment H [Automated messa ge] The system which generated this result transmitted reference range: 0 - 3 HPF. The reference range was not used to interpret this result as normal/abnormal. WBC/HPF (test code = 3168998240) See_Comment H [Automated messa ge] The system which generated this result transmitted reference range: 0 - 5 HPF. The reference range was not used to interpret this result as normal/abnormal. BACTERIA (test code = 8954489155) Few Negative A MUCOUS (test code = 4984651054) Slight Negative LPF A SQ EPITH (test code = 3128778201) HPF HYAL CAST (test code = 2852541754) See_Comment [Automated messa ge] The system which generated this result transmitted reference range: <=2 LPF. The reference range was not used to interpret this result as normal/abnormal. Lab Interpretation (test code = 85519-6) Abnormal [facility] WITH [id number] 19:01:00* Test Item Value Reference Range Interpretation Comme nts WBC (test code = 6690-2) See_Comment [Automated messa ge] The system which generated this result transmitted reference range: 4.20 - 10.70 10*3/?L. The reference range was not used to interpret this result as normal/abnormal. RBC (test code = 789-8) See_Comment [Automated messa ge] The system which generated this result transmitted reference range: 4.26 - 5.52 10*6/?L. The reference range was not used to interpret this result as normal/abnormal. HGB (test code = 718-7) 15.1 g/dL 12.2-16.4 HCT (test code = 4544-3) 44.5 % 38.4-49.3 MCV (test code = 787-2) 89.9 fL 81.7-95.6 MCH (test code = 785-6) 30.5 pg 26.1-32.7 MCHC (test code = 786-4) 33.9 g/dL 31.2-35 RDW-SD (test code = 30689-1) 41.1 fL 38.5-51.6 RDW-CV (test code = 788-0) 12.6 % 12.1-15.4 PLT (test code = 777-3) See_Comment [Automated messa ge] The system which generated this result transmitted reference range: 150 - 328 10*3/?L. The reference range was not used to interpret this result as normal/abnormal. MPV (test code = 06047-1) 10.0 fL 9.8-13 NRBC/100 WBC (test code = 9385040816) See_Comment [Automated me ssage] The system which generated this result transmitted reference range: 0.0 - 10.0 /100 WBCs. The reference range was not used to interpret this result as normal/abnormal. NRBC x10^3 (test code = 2760620200) <0.01 See_Comment [Automated me ssage] The system which generated this result transmitted reference range: 10*3/?L. The reference range was not used to interpret this result as normal/abnormal. GRAN MAT (NEUT) % (test code = 770-8) 49.1 % IMM GRAN % (test code = 6056023065) 0.30 % LYMPH % (test code = 736-9) 36.6 % MONO % (test code = 5905-5) 8.5 % EOS % (test code = 713-8) 4.8 % BASO % (test code = 706-2) 0.7 % GRAN MAT x10^3(ANC) (test code = 0006894320) 3.78 10*3/uL 1.99-6.95 IMM GRAN x10^3 (test code = 1891083993) <0.03 0-0.06 LYMPH x10^3 (test code = 731-0) 2.81 10*3/uL 1.09-3.23 MONO x10^3 (test code = 742-7) 0.65 10*3/uL 0.36-1.02 EOS x10^3 (test code = 711-2) 0.37 10*3/uL 0.06-0.53 BASO x10^3 (test code = 704-7) 0.05 10*3/uL 0.01-0.09 [facility]
[2024-07-17] MEDS ORDERED: IBUPROFEN 400 MG TAB ONE (10:36)
--- NOTE | 2024-07-17 14:24 | RAD REPORT ---
EXAMINATION: XR Foot Left 3 View CLINICAL INDICATION: Male, 58 years old. [facility] MAIN Pain;Swelling Bed Name: DX3 TECHNIQUE: 3 view radiographs of the left foot were obtained. COMPARISON: No prior exam. FINDINGS: Comminuted mildly displaced fracture along the neck of the first metatarsal. No evidence of arthropathy or other focal bone lesion. Soft tissue swelling about the dorsal aspect of the foot. Moderate calcaneal spur. No significant degenerative changes. IMPRESSION: Comminuted mildly displaced fracture along the neck of the first metacarpal.
--- NOTE | 2024-07-17 14:33 | EDPHYS ---
Physician Documentation [facility] Name: Yemi Vega Age: 58 yrs Sex: Male : 1965 Arrival Date: 07/17/2024 Time: 09:46 Bed DX4 Private MD: ED Physician Sonu Carranza HPI: 07/17 10:29 This 58 yrs old Male presents to ER via Ambulatory with complaints of Foot dr5 Injury - LT, LT Foot Swelling. 10:29 The patient presents with pain, tenderness. The complaints affect the dorsum of left dr5 foot. Patient is a 58-year-old male with history of hypertension and diabetes coming in with left foot injury that occurred approximately 10 days ago. Patient states that he was working outside and a small tree limb fell over hit the top of his left foot. Patient reports that swelling and pain have improved over the last couple days but wants to make sure it is okay.. Historical: - Allergies: 10:11 No Known Allergies; hb - PMHx: 10:11 Diabetes - NIDDM; Hypertension; hb - PSHx: 10:11 None; hb - Immunization history:: Adult Immunizations up to date. - Infectious Disease History:: Denies. - Social history:: Smoking status: Patient denies any tobacco usage or history of. ROS: 10:29 Constitutional: as per hpi dr5 Exam: 10:29 Constitutional: This is a well developed, well nourished patient who is awake, alert, dr5 and in no acute distress. Head/Face: Normocephalic, atraumatic. Eyes: Pupils equal round and reactive to light, extra-ocular motions intact. Lids and lashes normal. Conjunctiva and sclera are non-icteric and not injected. Cornea within normal limits. Periorbital areas with no swelling, redness, or edema. ENT: Nares patent. No nasal discharge, no septal abnormalities noted. Tympanic membranes are normal and external auditory canals are clear. Oropharynx with no redness, swelling, or masses, exudates, or evidence of obstruction, uvula midline. Mucous membranes moist. Chest/axilla: Normal chest wall appearance and motion. Nontender with no deformity. No lesions are appreciated. Cardiovascular: Regular rate and rhythm with a normal S1 and S2. Normal PMI, no JVD. No pulse deficits. Respiratory: Lungs have equal breath sounds bilaterally, clear to auscultation. No rales, rhonchi or wheezes noted. No increased work of breathing, no retractions or nasal flaring. Back: No spinal tenderness. No costovertebral tenderness. Full range of motion. Skin: Warm, dry with normal turgor. Normal color with no rashes, no lesions, and no evidence of cellulitis. Neuro: Awake and alert, GCS 15, oriented to person, place, time, and situation. Cranial nerves II-XII grossly intact. Motor strength 5/5 in all extremities. Sensory grossly intact. Cerebellar exam normal. Normal gait. 10:29 Musculoskeletal/extremity: Extremities: noted in the left foot: contusion, pain, swelling, tenderness, ROM: no acute changes, intact in all extremities, Circulation is intact in all extremities. Sensation intact. Vital Signs: 10:08 BP 134 / 93; Pulse 94; Resp 17; Temp 98.2; Pulse Ox 99% ; Weight 108.86 kg; Height 5 hb ft. 10 in. ; Pain 8/10; 10:08 Body Mass Index 34.44 (108.86 kg, 177.8 cm) hb 10:08 Pain Scale: Adult hb Procedures: 14:38 Splinting: Splint applied to left foot using Walking Boot. applied by nurse. Examined dr5 by me, post splint application: neurovascular intact, 2+ distal pulses palpable, brisk capillary refill noted, Patient tolerated well. MDM: 09:56 Medical Screening Exam initiated dr5 14:38 Differential diagnosis: dislocation, open fracture, closed fracture, contusion, dr5 abrasion. Data reviewed: vital signs, nurses notes, radiologic studies. Care significantly affected by the following chronic conditions: Diabetes, Hypertension. Care significantly affected by the following Social Determinants of Health: Poor access to healthcare and/or lack of insurance, Poor access to transportation, Problems related to employment. Counseling: I had a detailed discussion with the patient and/or guardian regarding the historical points, exam findings, and any diagnostic results supporting the discharge/admit diagnosis, the presence of at least one elevated blood pressure reading (>120/80) during this emergency department visit, radiology results, the need for outpatient follow up, for definitive care, a family practitioner, a orthopedic surgeon, to return to the emergency department if symptoms worsen or persist or if there are any questions or concerns that arise at home. ED course: Patient placed in walking boot. Results given to patient to take to orthopedics. Note for work given to take this week off to have orthopedics appointment completed. 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 Recommend alternating Tylenol Motrin as needed for pain and swelling. Walking boot placed in ER. All questions answered.. 07/17 10:18 Order name: Foot Left 3 View XRAY; Complete Time: 14:32 dr5 07/17 14:32 Order name: Walking boot; Complete Time: 14:46 dr5 Administered Medications: 10:38 Drug: Ibuprofen PO 800 mg PO once Route: PO; hb 14:23 Follow up: Response: No adverse reaction me1 Disposition Summary: 07/17/24 14:33 Discharge Ordered Notes: Location: Home dr5 Condition: Stable dr5 Diagnosis - Fracture of unspecified metatarsal bone(s), right foot dr5 Followup: dr5 - With: Emergency Department - When: As needed - Reason: Worsening of condition Followup: dr5 - With: Ney Quispe MD - When: 1 week - Reason: Recheck today's complaints, Continuance of care, Re-evaluation by your physician Followup: dr5 - With: Robinson Lobo MD - When: 1 week - Reason: Recheck today's complaints, Continuance of care, Re-evaluation by your physician Discharge Instructions: - Discharge Summary Sheet dr5 - Metatarsal Fracture dr5 - Walking Boot, Adult dr5 Forms: - Work release form dr5 - Medication Reconciliation Form dr5 - Patient Portal Instructions dr5 - Leadership Thank You Letter dr5 Addendum: 07/18/2024 19:22 Co-signature as Attending Physician, Sonu Carranza MD I agree with the assessment and c pierre plan of care. Signatures: Dispatcher [employer] Sonu West MD MD cha Baxter, Heather, RN RN Brett Martínez, QUALITATIVE FIELD COORDINATOR-C QUALITATIVE FIELD COORDINATOR-Cdr5 Cindy Núñez RN me1
--- NOTE | 2024-07-17 14:33 | ER ---
Nurse's Notes [facility] Name: Yemi Vega Age: 58 yrs Sex: Male : 1965 Arrival Date: 07/17/2024 Time: 09:46 Bed DX4 Private MD: Diagnosis: Fracture of unspecified metatarsal bone(s), right foot Presentation: 07/17 10:08 Chief complaint: Patient states: a couple of weeks ago a small tree fell across the top hb of his left foot. Has been painful since without improvement. Pain 8/10. Coronavirus screen: Vaccine status: Patient reports receiving the 2nd dose of the covid vaccine. Ebola Screen: No symptoms or risks identified at this time. Initial Sepsis Screen: Does the patient meet any 2 criteria? No. Patient's initial sepsis screen is negative. Does the patient have a suspected source of infection? No. Patient's initial sepsis screen is negative. Risk Assessment: Do you want to hurt yourself or someone else? Patient reports no desire to harm self or others. Onset of symptoms is unknown. 10:08 Method Of Arrival: Ambulatory hb 10:08 Acuity: JENNIFER 4 hb Triage Assessment: 10:11 General: Appears uncomfortable, well groomed, well developed, well nourished, Behavior me1 is calm, cooperative, appropriate for age. Pain: Complains of pain in dorsum of left foot Pain does not radiate. Pain currently is 8 out of 10 on a pain scale. Quality of pain is described as aching, Pain began suddenly, Is continuous. EENT: No signs and/or symptoms were reported regarding the EENT system. Neuro: Level of Consciousness is awake, alert, obeys commands, Oriented to person, place, time, situation, Appropriate for age. Cardiovascular: Patient's skin is warm and dry. Respiratory: Airway is patent Respiratory effort is even, unlabored, Respiratory pattern is regular, symmetrical. GI: No signs and/or symptoms were reported involving the gastrointestinal system. : No signs and/or symptoms were reported regarding the genitourinary system. Derm: Skin is intact, is healthy with good turgor, Skin is pink, warm \T\ dry. Musculoskeletal: Reports pain in dorsum of left foot. Injury Description: small tree fell and landed on top of patients left foot. Historical: - Allergies: 10:11 No Known Allergies; hb - PMHx: 10:11 Diabetes - NIDDM; Hypertension; hb - PSHx: 10:11 None; hb - Immunization history:: Adult Immunizations up to date. - Infectious Disease History:: Denies. - Social history:: Smoking status: Patient denies any tobacco usage or history of. Screenin:13 [facility] ED Fall Risk Assessment (Adult) History of falling in the last 3 months, me1 including since admission No falls in past 3 months (0 pts) Confusion or Disorientation No (0 pts) Intoxicated or Sedated No (0 pts) Impaired Gait No (0 pts) Mobility Assist Device Used No (0 pt) Altered Elimination No (0 pt) Score/Fall Risk Level 0 - 2 = Low Risk Maintained a safe environment, Provided non-skid footwear, Hourly rounding (assess needs \T\ fall precautionary measures) done. Abuse screen: Denies threats or abuse. Nutritional screening: No deficits noted. Tuberculosis screening: No symptoms or risk factors identified. Assessment: 10:13 General: Appears uncomfortable, well groomed, well developed, well nourished, Behavior me1 is calm, cooperative, appropriate for age, Reports a small tree fell on his left foot a couple of weeks ago and it still hurts. Pain: Complains of pain in dorsum of left foot Pain does not radiate. Pain currently is 8 out of 10 on a pain scale. Quality of pain is described as aching, Pain began suddenly, Is continuous. Neuro: Level of Consciousness is awake, alert, obeys commands, Oriented to person, place, time, situation, Appropriate for age. Cardiovascular: Patient's skin is warm and dry. Respiratory: Airway is patent Respiratory effort is even, unlabored, Respiratory pattern is regular, symmetrical. GI: No signs and/or symptoms were reported involving the gastrointestinal system. : No signs and/or symptoms were reported regarding the genitourinary system. EENT: No signs and/or symptoms were reported regarding the EENT system. Derm: Skin is intact, is healthy with good turgor, Skin is pink, warm \T\ dry. Musculoskeletal: Reports pain in left foot. Injury Description: a small tree fell across the top of his left foot. Vital Signs: 10:08 BP 134 / 93; Pulse 94; Resp 17; Temp 98.2; Pulse Ox 99% ; Weight 108.86 kg; Height 5 hb ft. 10 in. ; Pain 8/10; 10:08 Body Mass Index 34.44 (108.86 kg, 177.8 cm) hb 10:08 Pain Scale: Adult hb ED Course: 09:51 Patient arrived in ED. cj3 09:54 [facility]C [facility] 09:54 Sonu Carranza MD is Attending Physician. dr5 10:11 Triage completed. hb 10:11 Arm band placed on Patient placed in an exam room. hb 10:13 Cindy Núñez, RN is Primary Nurse. me1 10:13 Patient has correct armband on for positive identification. Bed in low position. Call me1 light in reach. Side rails up X2. Provided Education on: POC. Verbalized understanding.. 10:13 No provider procedures requiring assistance completed. Patient did not have IV access me1 during this emergency room visit. 11:56 Foot Left 3 View XRAY In Process Unspecified. EDMS 14:32 Ney Quispe MD is Referral Physician. dr5 14:32 Estuardo Fairchild MD is Referral Physician. dr5 14:33 Robinson Lobo MD is Referral Physician. dr5 Administered Medications: 10:38 Drug: Ibuprofen PO 800 mg PO once Route: PO; hb 14:23 Follow up: Response: No adverse reaction me1 Medication: 10:13 VIS not applicable for this client. me1 Outcome: 14:33 Discharge ordered by MD. dr5 14:46 Discharged to home assisted to POV via wheelchair by Anisha ROSE hb 14:46 Condition: stable 14:46 Discharge instructions given to patient, Instructed on discharge instructions, follow up and referral plans. medication usage, Demonstrated understanding of instructions, follow-up care, medications, 14:47 Patient left the ED. hb Signatures: Dispatcher [employer] EDMS Anisha Flores RN RN hb Cindy Núñez, MILTON RN me1 Brett Polo FNP-C [employer]-[facility]5 Miri Crow cj3
[2024-07-17 14:52] VITALS: BP 134/93; TEMP 98.2; O2SAT 99
== END 2024-07-17 14:47 | disposition home or self-care (01) ==
LOC: ER 09:46
DX: S92.312A Displaced fracture of first metatarsal bone, left foot, initial encounter for closed fracture (principal)
CPT/HCPCS: 99283